=== PATIENT | female | born 1985 | race Caucasian/White ===

== ENCOUNTER → 2016-09-04 | Outpatient (CLI) | payer OTHER ==
[~2016-09-04] MED LIST: DIAZ-165 PO; MELO7.5T5 PO
== END | disposition home or self-care (01) ==
LOC: C.PAPS 09:49
PROVIDERS: ATTEND Obstetrics & Gynecology
DX: Z01.419 Encounter for gynecological examination (general) (routine) without abnormal findings (principal)

== ENCOUNTER → 2016-09-04 | Outpatient (CLI) | payer OTHER ==
[2016-09-04 18:08] LABS: THYROID STIMULATING HORMONE 2.29 uIu/ml (0.300-4.500)
== END | disposition home or self-care (01) ==
LOC: C.LAB1850 16:37
PROVIDERS: ATTEND Obstetrics & Gynecology
DX: R63.5 Abnormal weight gain (principal)

== ENCOUNTER 2017-01-14 11:30 | Emergency (ER) | payer OTHER ==
[~2017-01-14] VITALS: Ht 160 cm; Wt 92.1 kg
[2017-01-14 11:35] VITALS: Ht 160 cm; Wt 92.1 kg
[2017-01-14] MEDS ORDERED: KETOROLAC TROMETHAMINE 30 MG/ML VIAL IM STA (13:25)
[2017-01-14] MEDS ORDERED: DIAZEPAM 5MG TAB PO STA (14:00)
[2017-01-14] MEDS ORDERED: DIAZ-165 PO (14:07)
[2017-01-14] MEDS ORDERED: MELO7.5T5 PO (14:07)
--- NOTE | 2017-01-14 14:13 | EMERGENCY ROOM VISIT NOTE ---
ED Visit Note First contact with patient: 12:08 CHIEF COMPLAINT: Low back pain HISTORY OF PRESENT ILLNESS: The patient complains of pain in the low back which began after doing some gardening yesterday afternoon. The pain was gradual in onset, is now constant and worse with movement. The pain radiates down the lateral side of the buttock and right leg. Denies any bowel or bladder difficulties. There has been no leg numbness or weakness. No recent direct trauma. No vomiting or abdominal pain. No gait abnormalities. No fevers or chills. REVIEW OF SYSTEMS: No significant prior back injuries, no abdominal pain, vomiting or diarrhea, no chest pain or shortness of breath. No dysuria or increased urinary frequency. PMH: The patient is healthy; there is no significant medical or surgical history. SOCIAL HISTORY: Patient lives at home. PHYSICAL EXAM: Vital Signs: Reviewed Nurse's notes. MENTAL STATUS: Alert and oriented. NECK: Supple, non-tender. ABDOMEN: Soft, non-tender, no masses or organs felt. Bowel sounds normoactive. BACK: Tenderness in the right paraspinous muscles in the lumbar area. No tenderness over the spinous processes of the lumbar vertebrae. LEGS: Normal strength including dorsi- flexion and plantar flexion of the feet. Negative bilateral straight leg raising, normal and symmetrical knee and ankle reflexes. EMERGENCY DEPARTMENT COURSE: I examined the patient. Differential diagnosis includes back sprain, strain, muscle spasms, lumbar radiculopathy/sciatica, less likely traumatic injury to the lumbar spine. Patient has a very flat affect, when asked multiple times about her level of pain, she is unable to provide a number to rate this. She only states that her pain is not that bad but gets much worse when she moves. She states the pain radiates down her right buttock and leg. She denies numbness or tingling, and has normal sensation, reflexes, strength in both lower extremities. No reported saddle paresthesias or bowel/bladder dysfunction. She was treated with IM Toradol and by mouth Valium, she reports improvement in her symptoms. She was instructed to follow closely with her PCP. She verbalized understanding. 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 Current/Historical Medications Scheduled Diazepam (Valium), 5 MG PO TID Meloxicam (Mobic), 7.5 MG PO BID Allergies Coded Allergies: Codeine (Verified Adverse Reaction, Intermediate, SEVERE NAUSEA AND VOMITING, 11/24/15) Vital Signs Date Time Temp Pulse Resp B/P Pulse Ox O2 Delivery O2 Flow Rate FiO2 01/14/17 14:19 79 18 129/74 100 01/14/17 13:36 88 18 138/77 99 Room Air 01/14/17 11:35 36.5 90 20 137/90 98 Room Air Medications Administered Medications (Trade) Dose Ordered Sig/Sajan Route Start Time Stop Time Status Last Admin Dose Admin Ketorolac Tromethamine (Toradol Inj) 60 mg NOW STAT IM 01/14/17 13:25 01/14/17 13:26 DC 01/14/17 13:34 60 MG Diazepam (Valium Tab) 5 mg NOW STAT PO 01/14/17 14:00 01/14/17 14:01 DC 01/14/17 14:10 5 MG Departure Information Impression Primary Impression: Right-sided low back pain with right-sided sciatica Dispostion Home / Self-Care Condition GOOD Prescriptions Meloxicam (Mobic) 7.5 Mg Tab 7.5 MG PO BID for 10 Days, #20 TAB Prov: Ashley Robins, [employer] 01/14/17 Diazepam (Valium) 5 Mg Tab 5 MG PO TID for Muscle Spasms for 3 Days, #9 TAB Prov: Ashley Robins, [employer] 01/14/17 Referrals Xi Buitrago, C.R.N.PElizabeth (PCP) Patient Instructions ED Sciatica, [facility] Additional Instructions Take all medications as prescribed. Take the Mobic twice daily for the next 7-10 days until your symptoms are improved. Do not take any other NSAIDs like aspirin, Advil, Aleve, while you are taking this medication. You may also take Tylenol 1000 mg every 8 hours as needed to help treat pain. Take Valium as needed for muscle spasms. Do not drive, operate machinery, or drink alcohol while he was taking this medication. Follow-up with your PCP in the next few days for reassessment. You may benefit from physical therapy for your lower back pain. Should be set up by your PCP. Please return to the ER for severe worsening pain, complete numbness or weakness of one or both legs, numbness in your groin area, incontinence of bowel or bladder, fever/chills/feeling ill, or any other concerns. Problem Qualifiers Primary Impression: Right-sided low back pain with right-sided sciatica Chronicity: acute Qualified Codes: M54.41 - Lumbago with sciatica, right side
[2017-01-14 14:19] VITALS: BP 129/74; PULSE 79; O2SAT 100
== END 2017-01-14 14:20 | disposition home or self-care (01) ==
LOC: C.EDB 11:31 → C.EDD 14:20
DX: M54.41 Lumbago with sciatica, right side (principal); Z79.899 Other long term (current) drug therapy